=== PATIENT | male | born 1950 | race Caucasian/White ===

== ENCOUNTER 2018-08-20 21:43 | Emergency (ER) | payer OTHER ==
[~2018-08-20] VITALS: Wt 91.7 kg
[2018-08-20] MEDS ORDERED: PRED50TA PO (23:52)
[2018-08-20] MEDS ORDERED: VALA500T PO (23:52)
[2018-08-20] MEDS ORDERED: HYDR-4011 PO (23:52)
--- NOTE | 2018-08-20 23:55 | ERD ---
ER Documentation Chief Complaint Chief Complaint RASH ON RIGHT ABD, R BACK X'S 5 DAYS HPI 68-year-old male presents with a rash that he has had on his abdomen and back for about 5 days. He noticed burning sensation before he noticed the rash. No fever. He has never had this rash before. No vomiting. No chest pain palpitations or shortness of breath. ROS All systems reviewed and are negative except as per history of present illness. Medications Home Meds Active Scripts Hydrocodone/Acetaminophen ([place] 5-325 Tablet) 1 Each Tablet, 1 EACH PO Q6, #15 TAB Prov:SHANNON MEZA PA-C 08/20/18 Prednisone* (Prednisone*) 50 Mg Tablet, 50 MG PO DAILY, #5 TAB Prov:SHANNON MEZA PA-C 08/20/18 valAcyclovir Hcl* (valACYclovir Hcl*) 500 Mg Tablet, 1000 MG PO BID, #7 TAB Prov:SHANNON MEZA PA-C 08/20/18 Allergies Allergies: Coded Allergies: No Known Allergy (Unverified , 08/20/18) PMhx/Soc Hx Cardiac Disorders: Yes (HTN) Hx Alcohol Use: Yes (SOCIALLY) Hx Substance Use: No Hx Tobacco Use: No FmHx Family History: No diabetes Physical Exam Vitals Vital Signs Date Temp Pulse Resp B/P (MAP) Pulse Ox O2 O2 Flow FiO2 Time Delivery Rate 08/20/18 97.9 90 20 163/77 97 21:47 (105) Physical Exam Const: No acute distress Head: Atraumatic Eyes: Normal Conjunctiva ENT: Normal External Ears, Nose and Mouth. Neck: Full range of motion. No meningismus. Resp: Clear to auscultation bilaterally Cardio: Regular rate and rhythm, no murmurs Skin: Vesicular rash in dermatomal distribution on left side of the abdomen radiating to the back Procedures/MDM Patient has shingles. Prescription for valacyclovir given as well as prednisone and [place] for pain. Patient counseled regarding my diagnostic impression and care plan. Prior to discharge all questions answered. Pt agrees with treatment plan and understands strict return precautions. Pt is instructed to follow up with primary care provider within 24-48 hours. Precautionary instructions provided including instructions to return to the ER if not improving or for any worsening or changing symptoms or concerns. Departure Diagnosis: Primary Impression: Shingles Condition: Stable Patient Instructions: Shingles (Herpes Zoster) Additional Instructions: Call your primary care doctor TOMORROW for an appointment during the next 1-2 days.See the doctor sooner or return here if your condition worsens before your appointment time. SHANNON MEZA PA-C August 20, 2018 23:55
[2018-08-21 00:23] VITALS: BP 142/72; PULSE 82; RESP 16
== END 2018-08-21 00:24 | disposition home or self-care (01) ==
LOC: FTE 21:43
DX: B02.9 Zoster without complications (principal); I10 Essential (primary) hypertension
CPT/HCPCS: 99283